=== PATIENT | male | born 1985 ===

== ENCOUNTER 2019-02-25 17:26 | Emergency (ER) | payer MEDICAID, OTHER ==
[~2019-02-25] VITALS: Ht 177.8 cm; Wt 141.0 kg
[2019-02-25 17:45] LABS: BASOPHILS # (AUTO) 0.04 x10^3/uL (0-0.1); BASOPHILS % (AUTO) 1 % (0-1); EOSINOPHILS # (AUTO) 0.17 x10^3/uL (0-0.4); EOSINOPHILS % (AUTO) 3 % (1-7); LYMPHOCYTES % (AUTO) 39 % (22-44); MD NO; MEAN CORPUSCULAR HEMOGLOBIN 31.7 pg (27.5-34.5); MEAN CORPUSCULAR HGB CONC 33.2 g/dL (33.2-36.2); MEAN CORPUSCULAR VOLUME 95.5 fL (81-97); MEAN PLATELET VOLUME 8.6 fL (7.4-10.4); MONOCYTES # (AUTO) 0.27 x10^3/uL (0.2-0.8); MONOCYTES % (AUTO) 5 % (2-9); NEUTROPHILS # (AUTO) 2.86 x10^3/uL (1.8-6.8); NEUTROPHILS % (AUTO) 53 % (42-75); PLATELET COUNT 197 x10^3/uL (130-400); RED BLOOD COUNT 5.05 x10^6/uL (4.38-5.82)
--- NOTE | 2019-02-25 17:47 | NUR ---
Pt BIB [facility]-c/o ETOH intoxication, states drank 13 tall cans of beer today. Pt states he wanted to go to [facility] and was denied due to insurance. Pt appears grossly intoxicated, awakens to his name being called. Pt A&O to self, place. Pt denies injury or pain, denies SI/HI. Pt placed in gown, positioned for comfort in bed. Continuous oxygen, heart and BP monitors applied, all safety measures observed. Dr. Valentino at bedside to evaluate pt.
[2019-02-25 17:57] LABS: ANION GAP 6 mmol/L (5-15); CALCIUM 7.9 mg/dL (8.5-10.1); CHLORIDE 114 mmol/L (98-107); CREATININE 0.76 mg/dL (0.7-1.3)
[2019-02-25 17:58] LABS: SALICYLATE LEVEL < 1.7 mg/dL (2.8-20.0)
--- NOTE | 2019-02-25 18:08 | NUR ---
Pt resting in bed with eyes closed, resp even and unlabored, NADN.
--- NOTE | 2019-02-25 18:18 | NUR ---
Per Dr. Valentino she has spoken with the director of [facility] and they will accept the pt. Rhonda SINGH involved to facilitate transport.
--- NOTE | 2019-02-25 18:57 | NUR ---
RN x2 to bedside, recieved report. Assumed patient care. Patient is lethargic, but saturations within normal limits. Awaiting patients ability to ambulate
--- NOTE | 2019-02-25 18:58 | NUR ---
Report to Collins VAZQUEZ.
--- NOTE | 2019-02-25 19:53 | NUR ---
RN to bedside attempted to ambulate patient, still very unsteady even in [facility]. Will recheck in 1 hour.
[2019-02-25 20:47] VITALS: BP 140/65
== END 2019-02-25 20:50 | disposition home or self-care (01) ==
LOC: ED 19:41
DX: F10.220 Alcohol dependence with intoxication, uncomplicated (principal); Y90.9 Presence of alcohol in blood, level not specified
CPT/HCPCS: 36415; 80048; 80307; 82040; 85025; 99283

== ENCOUNTER 2019-09-01 22:20 | Emergency (ER) | payer MEDICAID ==
[~2019-09-01] VITALS: Ht 180.3 cm; Wt 115.0 kg
[2019-09-01] MEDS ORDERED: SODIUM CHLORIDE FLUSH 10ML SYR IVF ONE (22:30)
[2019-09-01] MEDS ORDERED: ONDANSETRON 2MG/ML, 2ML IVPush ONE (22:30)
[2019-09-01] MEDS ORDERED: LORazepam 2 MG/ML, 1ML IVPush ONE (22:30)
[2019-09-01] MEDS ORDERED: THIAMINE 100MG TABLET PO ONE (22:30)
[2019-09-01] MEDS ORDERED: SODIUM CHLORIDE 0.9% 1,000ML IVBOLUS ONE (22:30)
[2019-09-01] MEDS ORDERED: LORazepam 2 MG/ML, 1ML IVPush PRN (22:30)
[2019-09-01] MEDS ORDERED: FOLIC ACID 1 MG TABLET PO ONE (22:32)
[2019-09-01] MEDS ORDERED: LORazepam 2 MG/ML, 1ML ONE (22:33)
--- NOTE | 2019-09-01 22:45 | NUR ---
BIBA FOR WITNESSED SEIZURE OF GREATER THAN 5 MIN. PT REPORTS HX OF ETOH WITHDRAWALS AND SEIZURES. IV PLACED AND MEDICATED PER MAY. PLACED ON CARDIAC AND VITAL SIGNS MONITORS. PT TAKEN TO CT.
[2019-09-01 22:50] LABS: BASOPHILS % (AUTO) 2 % (0-1); EOSINOPHILS # (AUTO) 0.07 x10^3/uL (0-0.4); EOSINOPHILS % (AUTO) 1 % (1-7); LYMPHOCYTES # (AUTO) 1.96 x10^3/uL (1-3.4); LYMPHOCYTES % (AUTO) 36 % (22-44); MD NO; MEAN CORPUSCULAR HEMOGLOBIN 31.8 pg (27.5-34.5); MEAN CORPUSCULAR HGB CONC 33.3 g/dL (33.2-36.2); MEAN CORPUSCULAR VOLUME 95.6 fL (81-97); MEAN PLATELET VOLUME 10.1 fL (7.4-10.4); MONOCYTES % (AUTO) 7 % (2-9); NEUTROPHILS # (AUTO) 2.89 x10^3/uL (1.8-6.8); NEUTROPHILS % (AUTO) 54 % (42-75); PLATELET COUNT 140 x10^3/uL (130-400); RED BLOOD COUNT 5.28 x10^6/uL (4.38-5.82); RED CELL DISTRIBUTION WIDTH 13.7 % (9.4-14.8)
[2019-09-01] MEDS ORDERED: THIAMINE 100MG TABLET ONE (23:01)
[2019-09-01 23:03] LABS: ALBUMIN 3.8 g/dL (3.4-5.0); ANION GAP 14 mmol/L (5-15); CHLORIDE 99 mmol/L (98-107); CREATININE 0.92 mg/dL (0.7-1.3)
[2019-09-01 23:05] LABS: ALKALINE PHOSPHATASE 86 U/L (45-117); BILIRUBIN,TOTAL 2.3 mg/dL (0.2-1.0); TOTAL PROTEIN 8.5 g/dL (6.4-8.2)
[2019-09-01 23:09] LABS: ALANINE AMINOTRANSFERASE 248 U/L (12-78)
[2019-09-01 23:56] VITALS: BP 145/81
== END 2019-09-02 00:25 | disposition home or self-care (01) ==
LOC: ED 09-02 00:20
DX: G40.89 Other seizures (principal); F10.239 Alcohol dependence with withdrawal, unspecified; M79.81 Nontraumatic hematoma of soft tissue; R00.0 Tachycardia, unspecified; I25.2 Old myocardial infarction; Y90.9 Presence of alcohol in blood, level not specified
CPT/HCPCS: 36415; 70450; 80053; 80307; 85025; 93005; 96361; 96374; 99285; J2060; J7030

== ENCOUNTER 2020-04-19 01:01 | Emergency (ER) | payer MEDICAID ==
[~2020-04-19] VITALS: Ht 162.6 cm; Wt 110.0 kg
--- NOTE | 2020-04-19 01:50 | NUR ---
REPORT GIVEN TO TAYLOR REES
--- NOTE | 2020-04-19 02:22 | NUR ---
pt ambulatory to the bathroom with a steady gait
[2020-04-19 03:04] LABS: ALANINE AMINOTRANSFERASE 63 U/L (12-78); ALBUMIN 3.9 g/dL (3.4-5.0); ANION GAP 7 mmol/L (5-15); CALCIUM 8.8 mg/dL (8.5-10.1); CHLORIDE 101 mmol/L (98-107); CREATININE 0.75 mg/dL (0.7-1.3)
[2020-04-19 03:05] VITALS: BP 159/87
[2020-04-19 03:06] LABS: ALKALINE PHOSPHATASE 80 U/L (45-117); BILIRUBIN,TOTAL 1.6 mg/dL (0.2-1.0); TOTAL PROTEIN 8.1 g/dL (6.4-8.2)
[2020-04-19 03:07] LABS: BASOPHILS % (AUTO) 3 % (0-1); EOSINOPHILS % (AUTO) 2 % (1-7); LYMPHOCYTES % (AUTO) 26 % (22-44); MEAN CORPUSCULAR HEMOGLOBIN 31.6 pg (27.5-34.5); MEAN CORPUSCULAR HGB CONC 34.2 g/dL (33.2-36.2); MEAN PLATELET VOLUME 8.9 fL (7.4-10.4); MONOCYTES % (AUTO) 7 % (2-9); NEUTROPHILS % (AUTO) 61 % (42-75); PLATELET COUNT 311 x10^3/uL (130-400); RED BLOOD COUNT 4.68 x10^6/uL (4.38-5.82); RED CELL DISTRIBUTION WIDTH 14.1 % (9.4-14.8)
[2020-04-19 03:22] LABS: MD NO
== END 2020-04-19 04:07 | disposition home or self-care (01) ==
LOC: ED 01:31
DX: K92.2 Gastrointestinal hemorrhage, unspecified (principal); K92.1 Melena; R11.2 Nausea with vomiting, unspecified; F17.210 Nicotine dependence, cigarettes, uncomplicated
CPT/HCPCS: 36415; 80053; 83690; 85025; 99283; 99406

== ENCOUNTER 2020-11-22 09:22 | Emergency (ER) | payer MEDICAID ==
[~2020-11-22] VITALS: Ht 180.3 cm; Wt 94.5 kg
--- NOTE | 2020-11-22 09:22 | NUR ---
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
[2020-11-22] MEDS ORDERED: SODIUM CHLORIDE FLUSH 10ML SYR IVF ONE (10:00)
[2020-11-22] MEDS ORDERED: SODIUM CHLORIDE 0.9% 1,000 ML IV ONE (10:00)
[2020-11-22] MEDS ORDERED: PLEASE ENTER HEIGHT AND WEIGHT MC SCH (10:00)
[2020-11-22 10:29] LABS: ALANINE AMINOTRANSFERASE 32 U/L (12-78); ALBUMIN 4.1 g/dL (3.4-5.0); ANION GAP 14 mmol/L (5-15); CALCIUM 8.4 mg/dL (8.5-10.1); CHLORIDE 99 mmol/L (98-107); CREATININE 0.62 mg/dL (0.7-1.3)
[2020-11-22 10:34] LABS: ALKALINE PHOSPHATASE 84 U/L (45-117); BILIRUBIN,TOTAL 2.3 mg/dL (0.2-1.0); TOTAL PROTEIN 8.6 g/dL (6.4-8.2); TROPONIN I < 0.015 ng/mL (0.000-0.045)
[2020-11-22 10:39] LABS: BASOPHILS % (AUTO) 3 % (0-1); EOSINOPHILS % (AUTO) 1 % (1-7); LYMPHOCYTES % (AUTO) 25 % (22-44); MEAN CORPUSCULAR HEMOGLOBIN 30.8 pg (27.5-34.5); MEAN PLATELET VOLUME 8.8 fL (7.4-10.4); MONOCYTES % (AUTO) 7 % (2-9); NEUTROPHILS % (AUTO) 64 % (42-75); PLATELET COUNT 65 x10^3/uL (130-400); RED BLOOD COUNT 5.07 x10^6/uL (4.38-5.82); RED CELL DISTRIBUTION WIDTH 14.9 % (9.4-14.8)
[2020-11-22 10:53] LABS: AMPHETAMINE SCREEN, URINE Negative (Negative); BARBITURATE SCREEN, URINE Negative (Negative); BENZODIAZEPINE SCREEN, URINE Negative (Negative); CANNABINOID SCREEN, URINE Negative (Negative); COCAINE SCREEN, URINE Negative (Negative); METHADONE SCREEN, URINE Negative (Negative); OPIATE SCREEN, URINE Negative (Negative)
--- NOTE | 2020-11-22 11:01 | NUR ---
REPORT FROM SALMA VAZQUEZ.
--- NOTE | 2020-11-22 11:05 | NUR ---
REPORT GIVEN TO LEONEL VAZQUEZ
[2020-11-22] MEDS ORDERED: OMNIPAQUE 350 MG/ML, 75ML BOTTLE ONE (11:12)
--- NOTE | 2020-11-22 13:00 | NUR ---
MEAL PROVIDED. PT SITTING UP AND EATING.
[2020-11-22 13:17] VITALS: BP 120/77
== END 2020-11-22 13:19 | disposition home or self-care (01) ==
LOC: ED 11:51
DX: F10.20 Alcohol dependence, uncomplicated (principal); R20.0 Anesthesia of skin; R51.9 Headache, unspecified; R94.31 Abnormal electrocardiogram [ECG] [EKG]; Y90.9 Presence of alcohol in blood, level not specified
CPT/HCPCS: 36415; 70450; 70496; 70498; 80053; 80307; 80320; 82140; 83735; 84484; 85025; 93005; 96360; 96361; 99285; J7030; Q9967; G0480